=== PATIENT | male | born 1975 | race Hispanic/Latino ===

== ENCOUNTER 2020-12-06 10:14 | Emergency (ER) | payer SELFPAY ==
[2020-12-06 10:29] VITALS: BP 158/94; PULSE 79; RESP 16; TEMP 36.4; O2SAT 99
--- NOTE | 2020-12-06 11:49 | ED.MALEGU ---
HPI - Male Genitourinary General Chief complaint: Urogenital-Male Stated complaint: RASH Time Seen by Provider: 12/06/20 11:36 Source: patient, family and RN notes reviewed Mode of arrival: ambulatory Limitations: no limitations History of Present Illness HPI Narrative: Patient presents today complaint of a 3-week history of a rash to his abdomen and groin that is itching and painful. It is worse when he sweats while working outside. He has not tried any [id number] treatment for the rash prior to arrival. Patient is also complaining of difficulty urinating x3 days with hematuria that started yesterday at the end of his stream intermittently. Denies abdominal pain. He reports dysuria today. MD Complaint: dysuria Related Data Allergies Allergy/AdvReac Type Severity Reaction Status Date / Time No Known Allergies Allergy Mild Verified 12/06/20 10:57 Review of Systems Review of Systems: CONSTITUTIONAL: Denies body aches, fever, chills, or sweats. EYES: Denies visual changes, redness, or discharge. ENT: Denies rhinorrhea, congestion, sore throat, or otalgia. CARDIOVASCULAR: Denies chest pain, palpitations, or edema. RESPIRATORY: Denies cough or dyspnea. GASTROINTESTINAL: Denies abdominal pain, nausea, vomiting, or diarrhea. GENITOURINARY: + Difficulty urinating, dysuria, hematuria SKIN: Denies wounds.+ Pruritic painful rash MUSCULOSKELETAL: Denies back pain, joint pain, or myalgia. NEUROLOGIC: Denies headache, numbness, tingling, or weakness. PSYCH: Denies depression or anxiety. PMFSH Comments Reviewed Exam Narrative: GENERAL: Well-appearing, well-nourished, and in no acute distress. HEAD: Normocephalic, atraumatic. EYES: EOMI. No redness or drainage. Conjunctivae normal. ENT: Mucous membranes pink and moist. NECK: Normal AROM. CHEST: No respiratory distress. Clear to auscultation. HEART: Regular rate and rhythm. No murmur appreciated. Normal peripheral pulses. ABDOMEN: Soft, nontender, nondistended, normal active bowel sounds. MUSCULOSKELETAL: No bony tenderness. EXTREMITIES: Normal range of motion. No edema. SKIN: Warm, dry. Capillary refill normal. Normal skin turgor. Erythematous maculopapular rash covering the proximal half of the bilateral upper legs anteriorly. There are small areas of honey crusting bilaterally. NEURO: No focal deficits. Alert and oriented x3. Gait steady. PSYCH: Normal affect. No signs of depression or anxiety. Course Vital Signs Vital signs: Vital Signs Temperature 97.5 F L 12/06/20 10:29 Pulse Rate 79 12/06/20 10:29 Respiratory Rate 16 12/06/20 10:29 Blood Pressure 158/94 H 12/06/20 10:29 Pulse Oximetry 99 12/06/20 10:29 Temperature 97.5 F L 12/06/20 10:29 Pulse Rate 79 12/06/20 10:29 Respiratory Rate 16 12/06/20 10:29 Blood Pressure 158/94 H 12/06/20 10:29 Pulse Oximetry 99 12/06/20 10:29 Reviewed. Pt has been instructed to follow up with his PCP regarding his elevated blood pressure today. MDM - Male Genitourinary Differential Diagnosis Differential diagnosis: Likely urinary tract infection, urethritis and prostatitis Lab Data Attestation: I reviewed the patient's lab results. Labs: Urine Glucose Negative Reference Range: Negative Urine Bilirubin Negative Reference Range: Negative Urine Ketone Negative Reference Range: Negative Urine Specific [place] 1.030 Reference Range:1.001-1.035 Urine Blood 2+ Reference Range: Negative * * Urine pH 7.0 Reference Range: 5.0-9.0 Urine Protein
== END 2020-12-06 12:15 | disposition home or self-care (01) ==
PROVIDERS: Emergency Provider Nurse Practitioner
DX: L25.9 Unspecified contact dermatitis, unspecified cause (principal); L01.00 Impetigo, unspecified; N39.0 Urinary tract infection, site not specified
CPT/HCPCS: 81003; 87086; 99213; G0463